=== PATIENT | male | born 1950 ===

== ENCOUNTER 2017-03-25 14:07 | Inpatient (IN) ==
--- NOTE | 2017-03-25 15:40 | Hospitalist History & Physical ---
<Mamie Davis - Last Filed: 03/25/17 15:27> Assessment and Plan - Time spent with patient Time spent with patient: Greater than 30 minutes (1) Symptomatic anemia Status: Acute Assessment and plan: 03/25/17 - Admit - symptomatic Anemia: weakness, fatigue, and shortness of breath with exertion -Dialysis (MWF) - consult Nephrology (Dr Cotton) -Symptomatic Anemia: consult Nephrology for assistance for further treatment -Will continue to monitor a.m. labs -Further recommendations with care to follow per Dr Reyes. Current Visit: Yes (2) Fatigue Status: Acute Current Visit: Yes (3) Anemia Status: Chronic Current Visit: No History of Present Illness Chief complaint: anemia History of present illness: Mr. Murrell is a 66 year old [place] male w/PMHx HTN, DM, GERD, Arthritis, CRD ( dialysis MWF), legally blind (cataracts), BiVen ICD, presented to [facility] sent from [facility] for direct admission for further evaluation of symptomatic Anemia. H&H 6.5 & 21.0. He denies chest pain, fever , or chills. He reports dyspnea with exertion, fatigue, and occasional nausea. He felt weak and had to sit done on floor, denies hitting head or sustaining any injuries. He has dialysis access right upper arm and reports having dialysis as scheduled, yesterday without any problems. His dialysis MWF. LABS done at [facility]: H&H 6.[address] Head CT: nothing acute. His last blood transfusion was in January. Heart catherization 01/21/17, EF 20%. He reports smoking 2 (sticks) per day, denies alcohol or drug use. Ambulates at home without assistance. Lives with his children. Takes Flu vaccine. PCP: [facility] Renal: Dr Cotton Patient will be a direct admit to a monitored bed for further evaluation and treatment of anemia. Labs will be ordered and reviewed. Will consult Renal for associated need to blood transfusion. Home Medications Medication Instructions Recorded Confirmed Type Gabapentin 100 mg PO TID 12/27/15 03/25/17 History Calcium Carbonate Chew [Tums] 3 tablet PO TID PRN 01/20/17 03/25/17 History Carvedilol [Coreg] 3.125 mg PO BID W/MEALS #60 tablet 02/05/17 03/25/17 Rx Ferrous Sulfate Tab [Feosol 325 mg PO TID #90 tablet 02/05/17 03/25/17 Rx Original Tab] Nitroglycerin Sl Tab [Nitrostat] 0.4 mg SL Q5M PRN #1 bottle 02/05/17 03/25/17 Rx Rosuvastatin [Crestor] 40 mg PO BEDTIME #30 tablet 02/05/17 03/25/17 Rx Aspirin EC Tab 81 mg PO QAM 03/25/17 03/25/17 History Clopidogrel [Plavix] 75 mg PO QAM 03/25/17 03/25/17 History Lisinopril [Prinivil] 2.5 mg PO QAM 03/25/17 03/25/17 History Saxagliptin HCl [Onglyza] 5 mg PO BEDTIME 03/25/17 03/25/17 History Allergies Allergy/AdvReac Type Severity Reaction Status Date / Time aspirin Allergy Severe ANAPHYLAXIS Verified 03/27/15 09:34 ibuprofen Allergy Severe ANAPHYLAXIS Verified 03/27/15 09:34 Medical,Surgical,& Family Hx - Medical History Cardio: History of: Cerebrovascular Disease, CHF, CAD, Hypertension, [place], PVD No history of: Cardiac Dysrhythmia, Pacemaker Neurology: History of: Vertigo No history of: Cerebral Palsy, Dementia, Seizures HEENT: History of: Eye Problem (CATARACTS LEGALLY BLIND) Endocrine: History of: Diabetes Mellitus (NIDDM), Dyslipidemia Rheumatology: History of;: Rheumatoid Arthritis Respiratory: History of: Bronchitis (GIVEN INHALER-last use of inhaler was last month; no asthma diagnosis) No history of: Asthma Renal: History of: Dialysis (mwf, graft to right upper arm), Renal Failure Gastrointestinal: No history of: Hepatitis, Liver Problems Hematology: History of: Anemia No history of: Blood Transfusion Reaction Other: History of: Anaphylaxis (ASA IBUPROFEN) No history of: Anesthesia Reactions, Cancer - Surgical History Cardiac Surgeries: Patient Denies: Cardiac Catheterization, Vascular Access Devices Thoracic Surgeries: Patient denies;: Kidney (Renal Surgery) HEENT Surgeries: Surgical HX of: Eye Surgery (CATARACTS) Patient denies: Tonsilectomy & Adenoidectomy Abdominal Surgeries: Surgical HX of: Hernia Repair Patient denies: Appendectomy, Cholecystectomy Orthopedic Surgeries: Patient denies;: Orthopedic Surgery - Family History Family History: Reports;: Family Cancer (father sister), Family Diabetes (father ), Family Heart Disease (father), Family Hypertension (father) - Social History Smoking Status: Former smoker (smokes 2 cigarettes per day) Frequency of Alcohol Use: None Type of Drug Use: None Lives With:: Children Functional capacity: independent ambulation 12 point system: reviewed and no additional remarkable complaints except as stated - Constitutional Constitutional: Present: fatigue, weakness. Absent: chills, fever(s) - Cardiovascular Cardiovascular: Present: dyspnea on exertion. Absent: chest pain at rest, chest pain with activity, edema - Respiratory Respiratory: Present: dyspnea on exertion - Gastrointestinal Gastrointestinal: Present: nausea. Absent: diarrhea, hematemesis, hematochezia , melena, vomiting Exam - Constitutional Vitals: Period Temp Pulse Resp BP Sys/Dawn Pulse Ox Last 24 Hr 98.8 F-98.8 F 67-77 18-18 105-123/55-56 100-100 General appearance: normal weight, no acute distress - Head Head exam: Present: normal inspection - Eye Eye exam: Present: EOMI, scleral icterus - Neck Neck exam: Present: normal inspection. Absent: thyromegaly - Respiratory Respiratory exam: Present: clear to auscultation bilaterally. Absent: rales, rhonchi, stridor, wheezes - Cardiovascular Cardiovascular exam: Present: regular rate and rhythm - GI/Abdominal GI/Abdominal exam: Present: normal bowel sounds, soft. Absent: tenderness, rebound - Extremities Exam Extremities exam: Present: normal inspection, full ROM. Absent: edema - Neurological Exam Neurological exam: Present: alert, oriented X3 - Psychiatric Psychiatric exam: Present: normal affect, normal mood. Absent: agitated, anxious - Skin Skin exam: Present: normal color, warm, dry, other (right upper arm dialysis access) Results - Labs Lab Results: I have reviewed the past 24 hour labs Labs: please see outside facility chart scanned into system H&H 6.5 & 21.0, Platelets 124.0 K 3.1 Troponin 0.7, CK-MB 1.5, CPK 78.00 Occult Blood - negative EKG: Biventricular pacemaker detected CT Head: nothing acute - Diagnostic Findings Procedure: CT: report reviewed by me (head: nothing acute) <Arjun Reyes - Last Filed: 03/25/17 16:19> History of Present Illness History of present illness: Mr. Murrell is a 66 year old male who is being admitted to the hospital with end- stage renal disease on hemodialysis, severe anemia, and severe weakness. I have interviewed and examined the patient and reviewed all available laboratory and radiographic test results. I agree with the assessment and plans of nurse practitioner Mamie Davis. Mr. Murrell is being admitted to the hospital for further evaluation and management of his severe anemia. Nephrology has been consulted for management of his hemodialysis. Exam - Constitutional Vitals: Period Temp Pulse Resp BP Sys/Dawn Pulse Ox Last 24 Hr 98.8 F-98.8 F 60-77 18-18 100-123/48-56 97-100
[2017-03-25] MEDS ORDERED: GLUCAGON 1 MG VIAL IM PRN (16:06)
[2017-03-25] MEDS ORDERED: ACETAMINOPHEN 325 MG TABLET PO PRN (16:06)
[2017-03-25] MEDS ORDERED: DEXTROSE 50% 25 GM/50 ML VIAL IV PRN (16:06)
[2017-03-25] MEDS ORDERED: ONDANSETRON 4 MG/2 ML VIAL IV PRN (16:06)
[2017-03-25 16:40] LABS: Basophils % 0.3 % (0.0-0.8); Eosinophils # 0.1 10*3/uL (0.0-0.87); Eosinophils % 1.2 % (0.00-10.9); Hematocrit 20.5 VOL% (42.0-52.0); Hemoglobin 6.7 GM/DL (14.0-18.0); Immature Granulocytes % 0.7 %; Immature Granulocytes Absolute 0.04 #; Lymphocytes # 0.9 10*3/uL (1.4-4.0); Lymphocytes % 15.7 % (21.2-54.2); Mean Corpuscular HGB Conc 32.7 GM/DL (32-36); Mean Corpuscular Hemoglobin 34 PG (27-34); Mean Platelet Volume 10.1 FL (9.6-12.0); Monocytes # 0.7 10*3/uL (0.11-0.8); Monocytes % 11.9 % (1.7-12.7); Neutrophils # 4.1 10*3/uL (1.4-7.4); Neutrophils % 70.2 % (38.7-73.9); Platelet Count 132 T/CUMM (130-400); Red Blood Count 1.99 MC/CUMM (3.8-5.5); Red Cell Distribution Width 18.8 % (9.3-17.3); White Blood Count 5.8 T/CUMM (4-12)
[2017-03-25 16:54] LABS: Albumin 2.5 G/DL (3.4-5.0); Bilirubin,Total 0.4 MG/DL (0.2-1.0); Calcium 7.9 MG/DL (8.5-10.1); Potassium 3.1 MMOL/L (3.5-5.1); Total Protein 7.4 G/DL (6.4-8.3)
[2017-03-25] MEDS ORDERED: NITROGLYCERIN SL 0.4 MG TABLET SL PRN (20:08)
[2017-03-25] MEDS ORDERED: CALCIUM CARBONATE CHEW 500 MG TABLET PO PRN (20:08)
[2017-03-25] MEDS: INSULIN LISPRO 100 UNIT/ML SUBCUT SCH ×2 (21:43→22:14)
[2017-03-25] MEDS: CARVEDILOL 3.125 MG TABLET PO SCH (21:44)
[2017-03-25] MEDS: FERROUS SULFATE 325 MG TABLET PO SCH (21:44)
[2017-03-25] MEDS: sitaGLIPtin 25 MG TABLET PO SCH (21:44)
[2017-03-25] MEDS: ROSUVASTATIN 20 MG TABLET PO SCH (21:44)
[2017-03-25] MEDS: GABAPENTIN 100 MG CAPSULE PO SCH (21:52)
[2017-03-26 04:48] LABS: Basophils % 0.3 % (0.0-0.8); Eosinophils # 0.1 10*3/uL (0.0-0.87); Eosinophils % 1.3 % (0.00-10.9); Hematocrit 18.6 VOL% (42.0-52.0); Immature Granulocytes % 0.8 %; Immature Granulocytes Absolute 0.05 #; Lymphocytes % 15.9 % (21.2-54.2); Mean Corpuscular HGB Conc 32.8 GM/DL (32-36); Mean Corpuscular Hemoglobin 34 PG (27-34); Mean Corpuscular Volume 102.8 FL (87-102); Mean Platelet Volume 10.2 FL (9.6-12.0); Monocytes # 0.7 10*3/uL (0.11-0.8); NRBC # 0.02 10*3/uL; Neutrophils # 4.2 10*3/uL (1.4-7.4); Neutrophils % 69.7 % (38.7-73.9); Platelet Count 112 T/CUMM (130-400); Red Blood Count 1.81 MC/CUMM (3.8-5.5); Red Cell Distribution Width 18.6 % (9.3-17.3)
[2017-03-26 04:54] LABS: Hemoglobin 6.1 GM/DL (14.0-18.0)
[2017-03-26 05:17] LABS: Calcium 7.7 MG/DL (8.5-10.1)
[2017-03-26 05:18] LABS: Magnesium 2.3 MG/DL (1.8-2.4); Osmolality,Calculated 280.8 MOS/KG (273-304); Potassium 3.3 MMOL/L (3.5-5.1)
[2017-03-26] MEDS: INSULIN LISPRO 100 UNIT/ML SUBCUT SCH ×4 (08:21→20:57)
[2017-03-26] MEDS: LISINOPRIL 2.5 MG TABLET PO SCH (09:26)
[2017-03-26] MEDS: FERROUS SULFATE 325 MG TABLET PO SCH ×3 (09:26→20:57)
[2017-03-26] MEDS: GABAPENTIN 100 MG CAPSULE PO SCH ×3 (09:27→20:57)
[2017-03-26] MEDS: CLOPIDOGREL 75 MG TABLET PO SCH (09:27)
[2017-03-26] MEDS: CARVEDILOL 3.125 MG TABLET PO SCH ×2 (09:27→17:06)
[2017-03-26] MEDS: PANTOPRAZOLE 40 MG TABLET PO SCH (09:27)
[2017-03-26] MEDS ORDERED: SODIUM CHLORIDE 0.9% 250 ML IV PRN (09:40)
--- NOTE | 2017-03-26 10:31 | Hospitalist Progress Note ---
Assessment and Plan (1) Diabetes Status: Chronic Assessment and plan: His glucose today is 114. He continues treatment in hospital with sliding scale insulin coverage. Current Visit: No Qualifiers: Diabetes mellitus type: type 2 Diabetes mellitus predatory animal exterminator insulin use: without longterm use Chronic kidney disease stage: on chronic dialysis (2) Anemia Status: Chronic Assessment and plan: His hematocrit and hemoglobin today are 18.6 and 6.1 respectively. He will receive transfusion of 2 units of packed red blood cells. Current Visit: No Qualifiers: Anemia type: due to chronic kidney disease (3) Hypertension Status: Chronic Assessment and plan: His blood pressure today is 104/54. Current Visit: No Qualifiers: Hypertension type: essential hypertension Qualified Code(s): I10 - Essential (primary) hypertension (4) ESRD (end stage renal disease) on dialysis Problem details: No acute indication for HD at this time. Status: Chronic Assessment and plan: He will continue his regularly scheduled hemodialysis under the management of nephrology. Current Visit: No (5) Ischemic cardiomyopathy Status: Acute Assessment and plan: Stable with no evidence of congestive heart failure. Current Visit: No Hospitalist: Subjective Interval history: Patient feels well today with no complaints. He is not experiencing dizziness or lightheadedness. He has not experienced any further episodes of falling. He last underwent transfusion of packed red blood cells in January 2017 for severe anemia. He will undergo transfusion today of 2 units of packed red blood cells. Exam - Constitutional Vitals: Period Temp Pulse Resp BP Sys/Dawn Pulse Ox Last 24 Hr 98.1 F-98.8 F 59-77 14-20 98-137/45-92 92-100 General appearance: normal weight, no acute distress - Head Head exam: Present: normal inspection - Neck Neck exam: Present: normal inspection - Respiratory Respiratory exam: Present: clear to auscultation bilaterally - Cardiovascular Cardiovascular exam: Present: regular rate and rhythm - GI/Abdominal GI/Abdominal exam: Present: normal bowel sounds, soft, other (Nontender with no palpable masses or hepatosplenomegaly.) - Extremities Exam Extremities exam: Present: normal inspection - Skin Skin exam: Present: normal color, warm, intact Results - Labs CBC & BMP: 03/26/17 03:58 03/26/17 03:58
--- NOTE | 2017-03-26 11:28 | Dialysis Note ---
Dialysis Note - Dialysis Note Patient is seen on hemodialysis, he is tolerating this well will continue his treatment unchanged.
--- NOTE | 2017-03-26 15:04 | Nephrology Consult Note ---
History of Present Illness Chief complaint: Admitted for symptomatic anemia, Hgb drop 2gm in 2 weeks, ESRD History of present illness: Mr. Murrell is a 66 year old male with ESRD due to presumed diabetic nephropathy on CHD TIW on MWF. Last HD Wednesday s complications. Hgb was 8.2 on 03/15. He denies excessive post HD bleeding from his fistula, melena or BRBPR. His iron saturations are adequate for erythropoiesis 87%. Mircera dosage increased to 75mcg every two weeks on 03/05. He denies SOB/pain. EDW: 73.5kg, Access: Right arm AVF. Home Medications Medication Instructions Recorded Confirmed Type Gabapentin 100 mg PO TID 12/27/15 03/25/17 History Calcium Carbonate Chew [Tums] 3 tablet PO TID PRN 01/20/17 03/25/17 History Carvedilol [Coreg] 3.125 mg PO BID W/MEALS #60 tablet 02/05/17 03/25/17 Rx Ferrous Sulfate Tab [Feosol 325 mg PO TID #90 tablet 02/05/17 03/25/17 Rx Original Tab] Nitroglycerin Sl Tab [Nitrostat] 0.4 mg SL Q5M PRN #1 bottle 02/05/17 03/25/17 Rx Rosuvastatin [Crestor] 40 mg PO BEDTIME #30 tablet 02/05/17 03/25/17 Rx Aspirin EC Tab 81 mg PO QAM 03/25/17 03/25/17 History Clopidogrel [Plavix] 75 mg PO QAM 03/25/17 03/25/17 History Lisinopril [Prinivil] 2.5 mg PO QAM 03/25/17 03/25/17 History Saxagliptin HCl [Onglyza] 5 mg PO BEDTIME 03/25/17 03/25/17 History Allergies Allergy/AdvReac Type Severity Reaction Status Date / Time aspirin Allergy Severe ANAPHYLAXIS Verified 03/27/15 09:34 ibuprofen Allergy Severe ANAPHYLAXIS Verified 03/27/15 09:34 Medical,Surgical,& Family Hx - Medical History Cardio: History of: Cerebrovascular Disease, CHF, CAD, Hypertension, [place], Pacemaker, PVD No history of: Cardiac Dysrhythmia Neurology: History of: Vertigo No history of: Cerebral Palsy, Dementia, Seizures HEENT: History of: Eye Problem (CATARACTS LEGALLY BLIND) Endocrine: History of: Diabetes Mellitus (NIDDM), Dyslipidemia Rheumatology: History of;: Rheumatoid Arthritis Respiratory: History of: Bronchitis (GIVEN INHALER-last use of inhaler was last month; no asthma diagnosis) No history of: Asthma Renal: History of: Dialysis (mwf, graft to right upper arm), Renal Failure Gastrointestinal: No history of: Hepatitis, Liver Problems Hematology: History of: Anemia No history of: Blood Transfusion Reaction Other: History of: Anaphylaxis (ASA IBUPROFEN) No history of: Anesthesia Reactions, Cancer - Surgical History Cardiac Surgeries: Patient Denies: Cardiac Catheterization, Vascular Access Devices Thoracic Surgeries: Patient denies;: Kidney (Renal Surgery) HEENT Surgeries: Surgical HX of: Eye Surgery (CATARACTS) Patient denies: Tonsilectomy & Adenoidectomy Abdominal Surgeries: Surgical HX of: Hernia Repair Patient denies: Appendectomy, Cholecystectomy Orthopedic Surgeries: Patient denies;: Orthopedic Surgery - Family History Family History: Reports;: Family Cancer (father sister), Family Diabetes (father ), Family Heart Disease (father), Family Hypertension (father) - Social History Smoking Status: Current every day smoker Frequency of Alcohol Use: None Type of Drug Use: None Exam - Vital Signs Vital signs: Period Temp Pulse Resp BP Sys/Dawn Pulse Ox Last 24 Hr 98.1 F-98.7 F 59-67 14-20 98-137/45-92 92-100 - General Appearance General appearance: well-developed, well-nourished, chronically ill EENT: ATNC, PERRL, mucous membranes moist, hearing intact, vision intact Neck: no JVD, no thyromegaly Respiratory: no kyphosis Cardiology: no murmurs, no rub, no edema Gastrointestinal: normoactive bowel sounds, no tenderness Integumentary: no rash, warm and dry Neurologic: no focal deficit, no asterixis, alert and oriented x3 Musculoskeletal: no deformities, no erythema, no cyanosis Psychiatric: mood/affect appropriate, cooperative Results - Labs CBC & BMP: 03/26/17 03:58 03/26/17 03:58 Assessment and Plan (1) Symptomatic anemia Problem details: Tranfuse 2u pRBCs on dialysis today. Status: Acute Assessment and plan: Give epogen 8k units IVP TIW with HD while in house. Stool for OB x 3. Current Visit: Yes (2) ESRD (end stage renal disease) on dialysis Problem details: For routine CHD today. Heparin free. UF to EDW 73.5kg as tolerated by hemodynamics. Status: Chronic Current Visit: No (3) Hypertension Status: Chronic Current Visit: No Qualifiers: Hypertension type: essential hypertension Qualified Code(s): I10 - Essential (primary) hypertension
[2017-03-26] MEDS: ROSUVASTATIN 20 MG TABLET PO SCH (20:56)
[2017-03-26] MEDS: sitaGLIPtin 25 MG TABLET PO SCH (20:56)
[2017-03-27] MEDS: INSULIN LISPRO 100 UNIT/ML SUBCUT SCH (08:16)
[2017-03-27 08:25] VITALS: BP 143/64
[2017-03-27] MEDS: LISINOPRIL 2.5 MG TABLET PO SCH (08:38)
[2017-03-27] MEDS: CLOPIDOGREL 75 MG TABLET PO SCH (08:38)
[2017-03-27] MEDS: FERROUS SULFATE 325 MG TABLET PO SCH (08:38)
[2017-03-27] MEDS: GABAPENTIN 100 MG CAPSULE PO SCH (08:39)
[2017-03-27] MEDS: PANTOPRAZOLE 40 MG TABLET PO SCH (08:39)
[2017-03-27] MEDS: CARVEDILOL 3.125 MG TABLET PO SCH (08:39)
[2017-03-27 09:44] LABS: Basophils % 0.4 % (0.0-0.8); Eosinophils # 0.1 10*3/uL (0.0-0.87); Eosinophils % 1.3 % (0.00-10.9); Immature Granulocytes % 0.6 %; Immature Granulocytes Absolute 0.03 #; Lymphocytes # 0.8 10*3/uL (1.4-4.0); Lymphocytes % 14.9 % (21.2-54.2); Mean Corpuscular HGB Conc 33.1 GM/DL (32-36); Mean Corpuscular Hemoglobin 33 PG (27-34); Mean Corpuscular Volume 99.2 FL (87-102); Mean Platelet Volume 9.9 FL (9.6-12.0); Monocytes # 0.5 10*3/uL (0.11-0.8); Monocytes % 9.5 % (1.7-12.7); Neutrophils % 73.3 % (38.7-73.9); Platelet Count 111 T/CUMM (130-400); Red Cell Distribution Width 18.7 % (9.3-17.3); White Blood Count 5.5 T/CUMM (4-12)
[2017-03-27 09:48] LABS: Red Blood Count 2.62 MC/CUMM (3.8-5.5)
[2017-03-27 09:49] LABS: Hemoglobin 8.6 GM/DL (14.0-18.0)
== END 2017-03-27 11:15 | disposition home or self-care (01) | DRG 699 ==
LOC: N.ED 14:07 → N.EDINP 15:18 → N.4E 19:20

== ENCOUNTER 2017-05-06 11:58 | Inpatient (IN) ==
[2017-05-06 13:34] LABS: Apearance,Urine CLOUDY (Clear); Bilirubin,Urine Negative (Negative); Blood, Urine Moderate mg/dL (Negative); Glucose,Urine (UA) Negative (Negative); Ketones,Urine Negative (Negative); Nitrite,Urine Negative (Negative); Protein,Urine >=500 MG/DL; RBC,Urine 3917 /HPF (0-4); Sperm,Urine Occasional /HPF (Negative); Urine Color Amber (Yellow); Urine Specific Gravity 1.013 (1.001-1.035); Urine Urobilinogen < 2.0 EU/DL (0.2-1.0); WBC,Urine 1506 /HPF (0-6)
[2017-05-06 14:16] LABS: Basophils % 0.4 % (0.0-0.8); Eosinophils # 0.1 10*3/uL (0.0-0.87); Hematocrit 29.9 VOL% (42.0-52.0); Immature Granulocytes % 0.2 %; Immature Granulocytes Absolute 0.01 #; Lymphocytes # 1.1 10*3/uL (1.4-4.0); Mean Corpuscular HGB Conc 33.4 GM/DL (32-36); Mean Corpuscular Hemoglobin 32 PG (27-34); Mean Corpuscular Volume 96.5 FL (87-102); Mean Platelet Volume 10.2 FL (9.6-12.0); Monocytes # 0.7 10*3/uL (0.11-0.8); Monocytes % 13.6 % (1.7-12.7); Neutrophils # 3.1 10*3/uL (1.4-7.4); Neutrophils % 62.8 % (38.7-73.9); Platelet Count 115 T/CUMM (130-400); Red Cell Distribution Width 15.3 % (9.3-17.3)
[2017-05-06 14:28] LABS: INR 1.1; PT Patient Result 11.1 SECS; Partial Thromboplastin Time 29.9 SECS (0-40)
[2017-05-06 14:51] LABS: Albumin 2.8 G/DL (3.4-5.0); Bilirubin,Total 0.6 MG/DL (0.2-1.0); Calcium 6.5 MG/DL (8.5-10.1); Osmolality,Calculated 284.7 MOS/KG (273-304); Potassium 3.6 MMOL/L (3.5-5.1); Total Protein 7.7 G/DL (6.4-8.3)
[2017-05-06] MEDS ORDERED: NITROGLYCERIN SL 0.4 MG TABLET SL PRN (15:22)
[2017-05-06] MEDS ORDERED: CALCIUM CARBONATE CHEW 500 MG TABLET PO PRN (15:22)
[2017-05-06] MEDS ORDERED: GLUCAGON 1 MG VIAL IM PRN (15:48)
[2017-05-06] MEDS ORDERED: DEXTROSE 50% 25 GM/50 ML VIAL IV PRN (15:48)
[2017-05-06] MEDS: INSULIN REGULAR 100 UNIT/ML SUBCUT SCH ×2 (17:24→21:19)
[2017-05-06 17:28] LABS: Hematocrit 29.8 VOL% (42.0-52.0)
[2017-05-06] MEDS: CARVEDILOL 3.125 MG TABLET PO SCH (17:34)
[2017-05-06] MEDS: FERROUS SULFATE 325 MG TABLET PO SCH (21:18)
[2017-05-06] MEDS: ROSUVASTATIN 20 MG TABLET PO SCH (21:18)
[2017-05-06] MEDS: sitaGLIPtin 25 MG TABLET PO SCH (21:19)
[2017-05-06] MEDS: GABAPENTIN 100 MG CAPSULE PO SCH (21:19)
[2017-05-07] MEDS: ACETAMINOPHEN 325 MG TABLET PO PRN (01:27)
[2017-05-07 01:37] LABS: Basophils % 0.3 % (0.0-0.8); Eosinophils # 0.2 10*3/uL (0.0-0.87); Eosinophils % 2.1 % (0.00-10.9); Hematocrit 28.3 VOL% (42.0-52.0); Hemoglobin 9.4 GM/DL (14.0-18.0); Immature Granulocytes % 0.6 %; Immature Granulocytes Absolute 0.04 #; Lymphocytes # 0.8 10*3/uL (1.4-4.0); Lymphocytes % 11.7 % (21.2-54.2); Mean Corpuscular HGB Conc 33.2 GM/DL (32-36); Mean Corpuscular Hemoglobin 32 PG (27-34); Mean Corpuscular Volume 96.3 FL (87-102); Mean Platelet Volume 9.6 FL (9.6-12.0); Monocytes # 0.8 10*3/uL (0.11-0.8); Neutrophils # 5.1 10*3/uL (1.4-7.4); Neutrophils % 73.3 % (38.7-73.9); Platelet Count 106 T/CUMM (130-400); Red Blood Count 2.94 MC/CUMM (3.8-5.5); Red Cell Distribution Width 15.2 % (9.3-17.3)
[2017-05-07 03:28] LABS: Albumin 2.6 G/DL (3.4-5.0); Bilirubin,Total 0.5 MG/DL (0.2-1.0); Magnesium 2.2 MG/DL (1.8-2.4); Osmolality,Calculated 287.8 MOS/KG (273-304); Phosphorous 7.6 MG/DL (2.5-4.9); Potassium 3.8 MMOL/L (3.5-5.1); Total Protein 6.9 G/DL (6.4-8.3)
[2017-05-07] MEDS ORDERED: cefTRIAXone 1,000 MG in SYRINGE 1 EACH IV ONE (06:00)
[2017-05-07 06:46] LABS: Platelet Estimate Decreased
[2017-05-07 06:47] LABS: Hypochromasia Slight
[2017-05-07] MEDS: INSULIN REGULAR 100 UNIT/ML SUBCUT SCH ×4 (07:30→21:11)
[2017-05-07 08:18] LABS: Hematocrit 28.4 VOL% (42.0-52.0); Hemoglobin 9.3 GM/DL (14.0-18.0)
[2017-05-07] MEDS: CARVEDILOL 3.125 MG TABLET PO SCH ×2 (08:50→17:34)
[2017-05-07] MEDS: GABAPENTIN 100 MG CAPSULE PO SCH ×3 (09:10→21:08)
[2017-05-07] MEDS: LISINOPRIL 2.5 MG TABLET PO SCH (09:10)
[2017-05-07] MEDS: FERROUS SULFATE 325 MG TABLET PO SCH ×3 (09:12→21:09)
[2017-05-07 17:30] LABS: Hematocrit 31.6 VOL% (42.0-52.0); Hemoglobin 10.8 GM/DL (14.0-18.0)
[2017-05-07] MEDS: sitaGLIPtin 25 MG TABLET PO SCH (21:08)
[2017-05-07] MEDS: ROSUVASTATIN 20 MG TABLET PO SCH (21:09)
[2017-05-08] MEDS: ACETAMINOPHEN 325 MG TABLET PO PRN (00:57)
[2017-05-08 06:47] LABS: Calcium 6.7 MG/DL (8.5-10.1); Magnesium 2.2 MG/DL (1.8-2.4); Potassium 3.8 MMOL/L (3.5-5.1)
[2017-05-08] MEDS: INSULIN REGULAR 100 UNIT/ML SUBCUT SCH ×4 (07:35→21:04)
[2017-05-08] MEDS: FERROUS SULFATE 325 MG TABLET PO SCH ×3 (08:55→21:13)
[2017-05-08] MEDS: LISINOPRIL 2.5 MG TABLET PO SCH (08:55)
[2017-05-08] MEDS: CARVEDILOL 3.125 MG TABLET PO SCH ×2 (08:55→16:32)
[2017-05-08] MEDS: GABAPENTIN 100 MG CAPSULE PO SCH ×3 (08:55→21:13)
[2017-05-08] MEDS: ROSUVASTATIN 20 MG TABLET PO SCH (21:13)
[2017-05-08] MEDS: sitaGLIPtin 25 MG TABLET PO SCH (21:13)
[2017-05-09 06:43] LABS: Calcium 6.5 MG/DL (8.5-10.1); Magnesium 2.4 MG/DL (1.8-2.4); Osmolality,Calculated 280.2 MOS/KG (273-304); Potassium 4.5 MMOL/L (3.5-5.1)
[2017-05-09] MEDS: INSULIN REGULAR 100 UNIT/ML SUBCUT SCH ×4 (07:30→22:08)
[2017-05-09] MEDS: LISINOPRIL 2.5 MG TABLET PO SCH (08:25)
[2017-05-09] MEDS: GABAPENTIN 100 MG CAPSULE PO SCH ×3 (08:26→22:05)
[2017-05-09] MEDS: CARVEDILOL 3.125 MG TABLET PO SCH ×2 (08:26→17:12)
[2017-05-09] MEDS: FERROUS SULFATE 325 MG TABLET PO SCH ×3 (08:26→22:05)
[2017-05-09] MEDS: sitaGLIPtin 25 MG TABLET PO SCH (22:05)
[2017-05-09] MEDS: ROSUVASTATIN 20 MG TABLET PO SCH (22:05)
[2017-05-10 06:58] LABS: Calcium 6.1 MG/DL (8.5-10.1); Magnesium 2.5 MG/DL (1.8-2.4); Osmolality,Calculated 287.2 MOS/KG (273-304); Potassium 5.1 MMOL/L (3.5-5.1)
[2017-05-10] MEDS: INSULIN REGULAR 100 UNIT/ML SUBCUT SCH ×4 (08:01→21:44)
[2017-05-10] MEDS: ASPIRIN CHEW 81 MG TABLET PO SCH (08:08)
[2017-05-10] MEDS: LISINOPRIL 2.5 MG TABLET PO SCH (08:09)
[2017-05-10] MEDS: GABAPENTIN 100 MG CAPSULE PO SCH ×3 (08:09→21:29)
[2017-05-10] MEDS: FERROUS SULFATE 325 MG TABLET PO SCH ×3 (08:09→21:28)
[2017-05-10] MEDS: CARVEDILOL 3.125 MG TABLET PO SCH ×2 (08:09→17:39)
[2017-05-10] MEDS ORDERED: cefTRIAXone 1,000 MG VIAL ONE (12:45)
[2017-05-10] MEDS ORDERED: PANTOPRAZOLE 40 MG VIAL IV ONE (12:45)
[2017-05-10] MEDS ORDERED: PROPOFOL 200 MG/20 ML VIAL IV ONE (14:51)
[2017-05-10] MEDS ORDERED: SEVOFLURANE 1 UNIT/15 MINUTE INH ONE (14:51)
[2017-05-10] MEDS ORDERED: fentaNYL 100 MCG/2 ML VIAL ONE (14:51)
[2017-05-10] MEDS ORDERED: ePHEDrine 50 MG/ML AMP ONE (14:52)
[2017-05-10] MEDS ORDERED: SUCCINYLCHOLINE 200 MG/10 ML VIAL ONE (14:53)
[2017-05-10] MEDS ORDERED: MIDAZOLAM 2 MG/2 ML VIAL ONE (14:53)
[2017-05-10] MEDS ORDERED: ONDANSETRON 4 MG/2 ML VIAL ONE (15:15)
[2017-05-10] MEDS ORDERED: HYDROmorphone 2 MG/1 ML VIAL ONE (15:15)
[2017-05-10] MEDS: HYDROmorphone 2 MG/1 ML VIAL IV PRN ×2 (15:16→15:26)
[2017-05-10] MEDS ORDERED: ONDANSETRON 4 MG/2 ML VIAL IV PRN (15:19)
[2017-05-10] MEDS ORDERED: DEXTROSE 50% 25 GM/50 ML VIAL IV PRN (16:09)
[2017-05-10] MEDS ORDERED: GLUCAGON 1 MG VIAL IM PRN (16:09)
[2017-05-10] MEDS: ROSUVASTATIN 20 MG TABLET PO SCH (21:28)
[2017-05-10] MEDS: sitaGLIPtin 25 MG TABLET PO SCH (21:28)
[2017-05-11] MEDS: ACETAMINOPHEN 325 MG TABLET PO PRN (05:14)
[2017-05-11] MEDS: INSULIN REGULAR 100 UNIT/ML SUBCUT SCH ×2 (08:19→11:44)
[2017-05-11 09:29] LABS: Hematocrit 27.5 VOL% (42.0-52.0); Hemoglobin 9.1 GM/DL (14.0-18.0)
[2017-05-11] MEDS: ASPIRIN CHEW 81 MG TABLET PO SCH (09:42)
[2017-05-11] MEDS: LISINOPRIL 2.5 MG TABLET PO SCH (09:42)
[2017-05-11] MEDS: FERROUS SULFATE 325 MG TABLET PO SCH (09:42)
[2017-05-11] MEDS: CARVEDILOL 3.125 MG TABLET PO SCH (09:43)
[2017-05-11] MEDS: GABAPENTIN 100 MG CAPSULE PO SCH (09:44)
[2017-05-11 14:21] VITALS: BP 124/59
== END 2017-05-11 12:09 | disposition home or self-care (01) | DRG 699 ==
LOC: N.ED 11:58 → N.EDINP 15:21 → SUATTDRO 15:21 → N.EDINP 16:20 → N.2E 17:02
PROVIDERS: ADMIT Internal Medicine; ATTEND Internal Medicine

== ENCOUNTER 2017-09-21 09:34 | Inpatient (IN) ==
[2017-09-21] MEDS ORDERED: SODIUM CHLORIDE 0.9% 500 ML IV STA (09:52)
[2017-09-21 10:40] LABS: INR 1.1; PT Patient Result 11.4 SECS; Partial Thromboplastin Time 31.7 SECS (0-40)
[2017-09-21] MEDS ORDERED: SODIUM CHLORIDE 0.9% 250 ML IV STA (10:57)
[2017-09-21] MEDS ORDERED: MORPHINE 4 MG/1 ML VIAL IV PRN (10:58)
[2017-09-21] MEDS ORDERED: INSULIN REGULAR 100 UNIT/ML SUBCUT ONE (10:58)
[2017-09-21] MEDS ORDERED: ONDANSETRON 4 MG/2 ML VIAL IV PRN (10:58)
[2017-09-21] MEDS ORDERED: BISACODYL 5 MG TABLET PO PRN (10:58)
[2017-09-21] MEDS ORDERED: MAGNESIUM SULF RIDER 2 GM in PREMIX 1 EACH IV PRN ×2 (10:58→14:10)
[2017-09-21] MEDS ORDERED: ZALEPLON 5 MG CAPSULE PO PRN (10:58)
[2017-09-21] MEDS ORDERED: POTASSIUM CHLORIDE 20 MEQ TABLET PO PRN (10:58)
[2017-09-21] MEDS ORDERED: MAGNESIUM HYDROXIDE SUSP 30 ML UDCUP PO PRN (10:58)
[2017-09-21] MEDS ORDERED: CALCIUM CARBONATE CHEW 500 MG TABLET PO PRN (11:03)
[2017-09-21] MEDS ORDERED: hydrOXYzine HCL 25 MG TABLET PO PRN (11:03)
[2017-09-21] MEDS ORDERED: NITROGLYCERIN SL 0.4 MG TABLET SL PRN (11:03)
[2017-09-21 11:04] LABS: CKMB % 4.7 %
[2017-09-21 11:06] LABS: Troponin I Only 17.6 NG/ML (0.00-0.045)
[2017-09-21 11:11] LABS: Basophils % 0.2 % (0.0-0.8); Eosinophils % 0.1 % (0.00-10.9); Hematocrit 31.7 VOL% (42.0-52.0); Hemoglobin 10.2 GM/DL (14.0-18.0); Immature Granulocytes % 0.7 %; Immature Granulocytes Absolute 0.07 #; Lymphocytes # 0.7 10*3/uL (1.4-4.0); Lymphocytes % 7.5 % (21.2-54.2); Mean Corpuscular HGB Conc 32.2 GM/DL (32-36); Mean Corpuscular Hemoglobin 33 PG (27-34); Mean Corpuscular Volume 101.3 FL (87-102); Mean Platelet Volume 9.9 FL (9.6-12.0); Monocytes # 0.8 10*3/uL (0.11-0.8); Monocytes % 8.7 % (1.7-12.7); Neutrophils # 7.9 10*3/uL (1.4-7.4); Neutrophils % 82.8 % (38.7-73.9); Red Blood Count 3.13 MC/CUMM (3.8-5.5); Red Cell Distribution Width 15.6 % (9.3-17.3); White Blood Count 9.6 T/CUMM (4-12)
[2017-09-21 11:12] LABS: Platelet Count 94 T/CUMM (130-400)
[2017-09-21] MEDS ORDERED: GLUCAGON 1 MG VIAL IM PRN (11:24)
[2017-09-21] MEDS ORDERED: DEXTROSE 50% 25 GM/50 ML VIAL IV PRN (11:24)
[2017-09-21 11:35] LABS: Albumin 2.7 G/DL (3.4-5.0); Bilirubin,Total 0.6 MG/DL (0.2-1.0); Calcium 6.5 MG/DL (8.5-10.1); Hypochromasia 1+; Osmolality,Calculated 285.7 MOS/KG (273-304); Potassium 3.3 MMOL/L (3.5-5.1); Total Protein 7.3 G/DL (6.4-8.3)
[2017-09-21] MEDS ORDERED: MAGNESIUM SULF RIDER 4 GM in PREMIX 1 EACH IV PRN (14:10)
[2017-09-21] MEDS: INSULIN REGULAR 100 UNIT/ML SUBCUT SCH ×3 (14:17→21:24)
[2017-09-21] MEDS ORDERED: ENOXAPARIN 30 MG/0.3 ML SYRINGE SUBCUT SCH (14:30)
[2017-09-21] MEDS ORDERED: EPOETIN ALFA 2,000 UNIT/1 ML VIAL IV PRN (15:08)
[2017-09-21] MEDS: ASPIRIN EC 81 MG TABLET PO SCH (15:10)
[2017-09-21] MEDS: CLOPIDOGREL 75 MG TABLET PO SCH (15:42)
[2017-09-21] MEDS: GABAPENTIN 100 MG CAPSULE PO SCH ×2 (15:42→21:24)
[2017-09-21] MEDS: FERROUS SULFATE 325 MG TABLET PO SCH ×2 (15:43→21:28)
[2017-09-21 15:44] LABS: CKMB % 4.6 %
[2017-09-21] MEDS: FUROSEMIDE 40 MG/4 ML VIAL IV SCH ×2 (15:46→15:57)
[2017-09-21] MEDS: PANTOPRAZOLE 40 MG TABLET PO SCH (15:46)
[2017-09-21 16:03] LABS: Troponin I Only 16.7 NG/ML (0.00-0.045)
[2017-09-21] MEDS ORDERED: SODIUM CHLORIDE 0.9% 500 ML IV ONE (19:37)
[2017-09-21] MEDS: ROSUVASTATIN 20 MG TABLET PO SCH (21:24)
[2017-09-21] MEDS: sitaGLIPtin 25 MG TABLET PO SCH (21:24)
[2017-09-22] MEDS: PHENYLEPHRINE DRIP 40 MG/250 ML PREMIX IV PRN ×2 (00:43→22:32)
[2017-09-22 05:25] LABS: Basophils % 0.4 % (0.0-0.8); Eosinophils % 0.4 % (0.00-10.9); Hematocrit 30.5 VOL% (42.0-52.0); Hemoglobin 9.8 GM/DL (14.0-18.0); Immature Granulocytes % 0.6 %; Immature Granulocytes Absolute 0.05 #; Lymphocytes % 12.5 % (21.2-54.2); Mean Corpuscular HGB Conc 32.1 GM/DL (32-36); Mean Corpuscular Hemoglobin 33 PG (27-34); Mean Platelet Volume 10.5 FL (9.6-12.0); Monocytes # 0.9 10*3/uL (0.11-0.8); Monocytes % 10.9 % (1.7-12.7); NRBC # 0.02 10*3/uL; Neutrophils % 75.2 % (38.7-73.9); Platelet Count 86 T/CUMM (130-400); Red Blood Count 3.02 MC/CUMM (3.8-5.5); Red Cell Distribution Width 15.8 % (9.3-17.3)
[2017-09-22 05:52] LABS: Hypochromasia 1+; Lymphocytes 8 % (20-55); Segmented Neutrophils 82 % (50-85); Total Cells Counted 100
[2017-09-22 05:53] LABS: Macrocytosis Slight; Platelet Estimate Decreased
[2017-09-22 05:57] LABS: CKMB % 7.7 %; Calcium 6.2 MG/DL (8.5-10.1); Osmolality,Calculated 283.8 MOS/KG (273-304); Potassium 3.9 MMOL/L (3.5-5.1)
[2017-09-22 06:08] LABS: Troponin I Only 25.8 NG/ML (0.00-0.045)
[2017-09-22 06:34] LABS: Albumin 2.4 G/DL (3.4-5.0); Bilirubin,Total 0.7 MG/DL (0.2-1.0); Calcium 6.2 MG/DL (8.5-10.1); Potassium 4.1 MMOL/L (3.5-5.1); Risk Ratio 1.53; VLDL CHOLESTEROL 21.2 MG/DL
[2017-09-22] MEDS: INSULIN REGULAR 100 UNIT/ML SUBCUT SCH ×4 (07:37→20:24)
[2017-09-22] MEDS: FERROUS SULFATE 325 MG TABLET PO SCH ×3 (08:48→20:24)
[2017-09-22] MEDS: ASPIRIN EC 81 MG TABLET PO SCH (08:49)
[2017-09-22] MEDS: PANTOPRAZOLE 40 MG TABLET PO SCH (08:49)
[2017-09-22] MEDS: FUROSEMIDE 40 MG/4 ML VIAL IV SCH ×2 (08:49→16:30)
[2017-09-22] MEDS: GABAPENTIN 100 MG CAPSULE PO SCH ×3 (08:49→20:23)
[2017-09-22] MEDS: CLOPIDOGREL 75 MG TABLET PO SCH (08:50)
[2017-09-22] MEDS: HEPARIN DRIP 25,000 UNITS/500 ML PREMIX IV SCH (13:42)
[2017-09-22] MEDS: ACETAMINOPHEN 325 MG TABLET PO PRN (13:50)
[2017-09-22 15:35] LABS: Apearance,Urine CLOUDY (Clear); Bilirubin,Urine Negative (Negative); Blood, Urine Large mg/dL (Negative); Glucose,Urine (UA) Negative (Negative); Ketones,Urine Negative (Negative); Nitrite,Urine Negative (Negative); Protein,Urine 100 MG/DL; RBC,Urine 17 /HPF (0-4); Sperm,Urine Few /HPF (Negative); Squamous Epithelial Cell,Urine Occasional /HPF (0-10); Urine Color Yellow (Yellow); Urine Specific Gravity 1.016 (1.001-1.035); Urine Urobilinogen < 2.0 EU/DL (0.2-1.0); WBC,Urine 662 /HPF (0-6)
[2017-09-22] MEDS: ROSUVASTATIN 20 MG TABLET PO SCH (20:24)
[2017-09-22] MEDS: sitaGLIPtin 25 MG TABLET PO SCH (20:25)
[2017-09-22] MEDS ORDERED: HEPARIN 5,000 UNIT/1 ML VIAL IV ONE (20:46)
[2017-09-23 01:38] LABS: Basophils % 0.3 % (0.0-0.8); Eosinophils % 0.1 % (0.00-10.9); Hematocrit 30.7 VOL% (42.0-52.0); Hemoglobin 9.8 GM/DL (14.0-18.0); Immature Granulocytes % 0.9 %; Immature Granulocytes Absolute 0.06 #; Lymphocytes # 0.8 10*3/uL (1.4-4.0); Lymphocytes % 11.5 % (21.2-54.2); Mean Corpuscular HGB Conc 31.9 GM/DL (32-36); Mean Corpuscular Hemoglobin 32 PG (27-34); Mean Platelet Volume 10.4 FL (9.6-12.0); Monocytes # 0.6 10*3/uL (0.11-0.8); Monocytes % 9.5 % (1.7-12.7); NRBC # 0.03 10*3/uL; Neutrophils # 5.2 10*3/uL (1.4-7.4); Neutrophils % 77.7 % (38.7-73.9); Platelet Count 80 T/CUMM (130-400); Red Blood Count 3.04 MC/CUMM (3.8-5.5); Red Cell Distribution Width 15.8 % (9.3-17.3); White Blood Count 6.7 T/CUMM (4-12)
[2017-09-23 02:26] LABS: CKMB % 6.2 %
[2017-09-23 02:28] LABS: Troponin I Only 26.5 NG/ML (0.00-0.045)
[2017-09-23 02:36] LABS: Osmolality,Calculated 277.2 MOS/KG (273-304); Potassium 4.3 MMOL/L (3.5-5.1)
[2017-09-23] MEDS: INSULIN REGULAR 100 UNIT/ML SUBCUT SCH ×4 (07:14→21:19)
[2017-09-23] MEDS: cefTRIAXone 1,000 MG in SYRINGE 1 EACH IV SCH (08:17)
[2017-09-23] MEDS: FUROSEMIDE 40 MG/4 ML VIAL IV SCH ×2 (09:23→17:42)
[2017-09-23] MEDS ORDERED: diphenhydrAMINE CAP 25 MG CAPSULE PO ONE (09:30)
[2017-09-23] MEDS ORDERED: DIAZEPAM 5 MG TABLET PO ONE (09:30)
[2017-09-23] MEDS: ASPIRIN EC 81 MG TABLET PO SCH (10:00)
[2017-09-23] MEDS ORDERED: MEPERIDINE 25 MG/1 ML VIAL ONE (10:35)
[2017-09-23] MEDS ORDERED: MIDAZOLAM 2 MG/2 ML VIAL ONE ×2 (10:35→19:05)
[2017-09-23] MEDS ORDERED: ASPIRIN 325 MG TABLET ONE (10:54)
[2017-09-23] MEDS: GABAPENTIN 100 MG CAPSULE PO SCH ×3 (11:14→21:18)
[2017-09-23] MEDS: PANTOPRAZOLE 40 MG TABLET PO SCH (12:34)
[2017-09-23] MEDS: FERROUS SULFATE 325 MG TABLET PO SCH ×3 (12:34→21:19)
[2017-09-23] MEDS: CLOPIDOGREL 75 MG TABLET PO SCH (12:34)
[2017-09-23] MEDS: ACETAMINOPHEN 325 MG TABLET PO PRN (12:51)
[2017-09-23] MEDS: HEPARIN DRIP 25,000 UNITS/500 ML PREMIX IV SCH ×2 (14:30→15:49)
[2017-09-23] MEDS ORDERED: HEPARIN 5,000 UNIT/1 ML VIAL IV ONE (14:34)
[2017-09-23] MEDS ORDERED: MORPHINE 4 MG/1 ML VIAL IV PRN (16:25)
[2017-09-23] MEDS ORDERED: ceFAZolin 1,000 MG in SYRINGE 1 EACH IV ONE (16:59)
[2017-09-23] MEDS ORDERED: HEPARIN 5,000 UNIT/1 ML VIAL ONE (17:08)
[2017-09-23] MEDS ORDERED: THROMBIN TOPICAL (RECOMBINANT) 5,000 UNIT VIAL TOP ONE (17:08)
[2017-09-23] MEDS ORDERED: LIDOCAINE 1% 50 ML VIAL ONE (17:08)
[2017-09-23] MEDS ORDERED: VANCOMYCIN 500 MG VIAL ONE (17:08)
[2017-09-23] MEDS ORDERED: BUPIVACAINE 0.25% 50 ML VIAL ONE (17:48)
[2017-09-23] MEDS ORDERED: ceFAZolin 1,000 MG VIAL ONE (18:00)
[2017-09-23] MEDS ORDERED: DOBUTamine 500 MG/250 ML PREMIX IV PRN (19:04)
[2017-09-23] MEDS ORDERED: fentaNYL 100 MCG/2 ML VIAL ONE (19:04)
[2017-09-23] MEDS ORDERED: KETAMINE 500 MG/10 ML VIAL ONE (19:05)
[2017-09-23] MEDS ORDERED: SODIUM CHLORIDE 0.9% 250 ML IV ONE (19:05)
[2017-09-23] MEDS ORDERED: CLOPIDOGREL 75 MG TABLET PO ONE (19:29)
[2017-09-23] MEDS: PHENYLEPHRINE DRIP 40 MG/250 ML PREMIX IV PRN (21:02)
[2017-09-23] MEDS: ROSUVASTATIN 20 MG TABLET PO SCH (21:18)
[2017-09-23] MEDS: sitaGLIPtin 25 MG TABLET PO SCH (21:19)
[2017-09-24 02:02] LABS: Calcium 6.9 MG/DL (8.5-10.1); Osmolality,Calculated 272.1 MOS/KG (273-304)
[2017-09-24 02:03] LABS: Basophils % 0.2 % (0.0-0.8); Eosinophils % 0.2 % (0.00-10.9); Hematocrit 28.5 VOL% (42.0-52.0); Hemoglobin 9.6 GM/DL (14.0-18.0); Immature Granulocytes % 0.7 %; Immature Granulocytes Absolute 0.06 #; Lymphocytes % 11.1 % (21.2-54.2); Mean Corpuscular HGB Conc 33.7 GM/DL (32-36); Mean Corpuscular Hemoglobin 33 PG (27-34); Mean Corpuscular Volume 96.9 FL (87-102); Mean Platelet Volume 11.1 FL (9.6-12.0); Monocytes % 11.7 % (1.7-12.7); NRBC # 0.06 10*3/uL; Neutrophils # 6.7 10*3/uL (1.4-7.4); Neutrophils % 76.1 % (38.7-73.9); Platelet Count 62 T/CUMM (130-400); Red Blood Count 2.94 MC/CUMM (3.8-5.5); Red Cell Distribution Width 15.8 % (9.3-17.3); White Blood Count 8.8 T/CUMM (4-12)
[2017-09-24] MEDS: PHENYLEPHRINE DRIP 40 MG/250 ML PREMIX IV PRN ×2 (07:47→15:58)
[2017-09-24] MEDS: INSULIN REGULAR 100 UNIT/ML SUBCUT SCH ×2 (07:49→15:23)
[2017-09-24] MEDS: CLOPIDOGREL 75 MG TABLET PO SCH (08:48)
[2017-09-24] MEDS: GABAPENTIN 100 MG CAPSULE PO SCH ×3 (08:48→22:13)
[2017-09-24] MEDS: FUROSEMIDE 40 MG/4 ML VIAL IV SCH (08:49)
[2017-09-24] MEDS: FERROUS SULFATE 325 MG TABLET PO SCH ×3 (08:49→22:13)
[2017-09-24] MEDS: cefTRIAXone 1,000 MG in SYRINGE 1 EACH IV SCH (08:49)
[2017-09-24] MEDS: PANTOPRAZOLE 40 MG TABLET PO SCH (08:49)
[2017-09-24] MEDS: ASPIRIN EC 81 MG TABLET PO SCH (08:49)
[2017-09-24] MEDS ORDERED: POTASSIUM CHLORIDE RIDER 10 MEQ in PREMIX 1 EACH IV PRN (11:35)
[2017-09-24] MEDS ORDERED: diphenhydrAMINE CAP 25 MG CAPSULE PO ONE (11:35)
[2017-09-24] MEDS ORDERED: DIAZEPAM 5 MG TABLET PO ONE (11:35)
[2017-09-24] MEDS ORDERED: MAGNESIUM SULF RIDER 2 GM in PREMIX 1 EACH IV PRN (11:35)
[2017-09-24] MEDS ORDERED: HYDROmorphone 2 MG/1 ML VIAL ONE (12:09)
[2017-09-24] MEDS ORDERED: MIDAZOLAM 2 MG/2 ML VIAL ONE ×2 (12:27→12:44)
[2017-09-24] MEDS ORDERED: HEPARIN/NACL 0.9% 2 UNITS/ML 500 ML IV ONE (12:28)
[2017-09-24] MEDS ORDERED: HEPARIN 5,000 UNIT/1 ML VIAL ONE (12:50)
[2017-09-24] MEDS ORDERED: ALTEPLASE 2 MG VIAL ONE (13:48)
[2017-09-24] MEDS ORDERED: ETOMIDATE 40 MG/20 ML VIAL IV ONE (14:09)
[2017-09-24] MEDS ORDERED: ROCURONIUM 100 MG/10 ML VIAL IV ONE (14:10)
[2017-09-24] MEDS ORDERED: DOBUTamine 500 MG/250 ML PREMIX IV ONE (14:11)
[2017-09-24 14:20] LABS: ABG Base Excess -19.3 MMOL/L (-2.5-2.5); ABG HCO3 9.9 MMOL/L (20-26); ABG Oxygen Saturation 97.1 % (95-100); ABG PCO2 35.5 MM HG (35-48); ABG TCO2 9.8 MMOL/L (23-27); Glucose Heart Surgery 100 MG/DL (74-106); Hematocrit Heart Surgery 24.7 PERCENT (42-52); Hemoglobin Heart Surgery 7.9 G/DL (14.0-18.0); Potassium Heart/CVR 6.4 MMOL/L (3.5-5.1)
[2017-09-24 14:22] LABS: ABG PH 7.056 (7.35-7.45)
[2017-09-24] MEDS ORDERED: HYDROmorphone 2 MG/1 ML VIAL IV PRN (14:45)
[2017-09-24] MEDS ORDERED: ACETAMINOPHEN/CODEINE 300-30 MG TABLET PO PRN (14:45)
[2017-09-24] MEDS ORDERED: SODIUM POLYSTYRENE SULFATE 15 GM/60 ML BOTTLE PO ONE (14:50)
[2017-09-24] MEDS ORDERED: HEPARIN 5,000 UNIT/1 ML VIAL IV ONE (15:50)
[2017-09-24] MEDS ORDERED: HEPARIN DRIP 25,000 UNITS/500 ML PREMIX IV SCH (16:00)
[2017-09-24] MEDS ORDERED: NOREPINEPHRINE 16 MG in SODIUM CHLORIDE 0.9% 234 ML IV PRN (16:21)
[2017-09-24] MEDS ORDERED: SODIUM POLYSTYRENE SULFATE 15 GM/60 ML BOTTLE PO PRN (16:25)
[2017-09-24] MEDS ORDERED: NOREPINEPHRINE 4 MG/4 ML VIAL IV ONE ×2 (16:26→16:39)
[2017-09-24] MEDS ORDERED: DOPamine 800 MG/250 ML PREMIX IV PRN (16:28)
[2017-09-24] MEDS ORDERED: SODIUM BICARB INJ 150 MEQ in STERILE WATER INJ 850 ML IV SCH (16:30)
[2017-09-24 16:42] LABS: ABG Base Excess -19.2 MMOL/L (-2.5-2.5); ABG Oxygen Saturation 98.4 % (95-100); ABG PCO2 27.3 MM HG (35-48); ABG TCO2 8.6 MMOL/L (23-27); Glucose Heart Surgery 103 MG/DL (74-106); Hematocrit Heart Surgery 24.6 PERCENT (42-52); Hemoglobin Heart Surgery 7.9 G/DL (14.0-18.0); Potassium Heart/CVR 5.2 MMOL/L (3.5-5.1)
[2017-09-24] MEDS ORDERED: PHENYLEPHRINE INJ 160 MG in SODIUM CHLORIDE 0.9% 234 ML IV PRN (16:59)
[2017-09-24] MEDS ORDERED: INSULIN REGULAR 100 UNIT/ML SUBCUT SCH (18:00)
[2017-09-24 21:59] VITALS: BP 84/55
[2017-09-24] MEDS: sitaGLIPtin 25 MG TABLET PO SCH (22:13)
[2017-09-24] MEDS: ROSUVASTATIN 20 MG TABLET PO SCH (22:13)
[2017-09-27] MEDS ORDERED: HEPARIN/NACL 0.9% 2 UNITS/ML 500 ML IV ONE (10:09)
== END 2017-09-24 08:35 | disposition expired | DRG 270 ==
LOC: EDBD → EDUNIT# → N.ED 09:34 → N.EDINP 10:58 → N.CC 11:16
PROVIDERS: ADMIT Internal Medicine Clinical Cardiac Electrophysiology; ATTEND Internal Medicine Clinical Cardiac Electrophysiology
PROC: CLCCHCL (ICD-10-PCS; 2017-09-23 10:45)